=== PATIENT | male | born 1980 | race Caucasian/White ===

== ENCOUNTER → 2017-01-01 | Outpatient (CLI) | payer MEDICAID ==
[~2017-01-01] MED LIST: ALBUTEROL2.5 MG/0.5 INH; BISAC-EVAC10 MG R; CETAPHIL LOTION8 OZ TOP; CLOBETASOL EMOL30 GM TOP; CONIVAPTAN IV; DEPAKOTE EXTEN500 MG PO; FISH OIL 1,0001 EAC1 PO; HYDROCORTISONE30 G1 TOP; LACTULOSE10 GM/15 M PO; MINERIN CREME454 GM TOP; NACL TABS1 GM PO; ONDANSETRON2 MG/1 ML IV; OXCARBAZEPINE150 MG PO; OXCARBAZEPINE300 MG PO; ROBITUSSIN DM120 ML PO; SM SENNA-S TAB1 EACH PO; TAB-A-VITE1 EACH PO; TRIPLE ANTIBIOT28 GM TOP; TYLENOL325 MG PO; VISINE15 ML OPHTH; ZOSYN 3.375 GM/50 ML IV; [UNRECOGNIZED DRUG - OTHER] PO
== END | disposition disaster alternative care site (69) ==
LOC: GAMB 11:59
DX: Z46.82 Encounter for fitting and adjustment of non-vascular catheter (principal); J18.9 Pneumonia, unspecified organism; R06.9 Unspecified abnormalities of breathing
CPT/HCPCS: A0422; A0425; A0426